=== PATIENT | male | born 1985 | race Caucasian/White ===

== ENCOUNTER → 2022-09-20 05:58 | Day surgery (SDC) | payer OTHER, SELFPAY ==
[2022-09-14 12:28] VITALS: BMI 29.7
[2022-09-14 13:30] VITALS: BMI 29.0
--- NOTE | 2022-09-18 13:25 | P.CONAN_ITS ---
HPI - Anesthesia Eval Consult details Narrative: 37yo M for Left Hernia Repair Inguinal with mesh, Hernia Repair Umbilical possible mesh PMFSH Active Problems Active Problems: All Active Problems (Updated 09/14/22 @ 12:29 by Trinity Sanchez, HANY) Deep inguinal pain, left (Acute) Testicular pain, left (Acute) Left inguinal hernia (Acute) Umbilical hernia (Acute) Past Medical History Medical History (Updated 09/14/22 @ 12:29 by Trinity Sanchez RN) Asthma Family History Family History Mother Asthma Social History Social History (Updated 09/14/22 @ 13:34 by Trinity Sanchez, HANY) Household Members: Significant Other and Children Housing: House Are you a primary primary care sales representative to a significant other at home: No Do you presently have visiting nurse or other home services: No Alcohol intake: current Alcohol intake frequency: does not drink Patient Tobacco Use Status: Current everyday Tobacco user Tobacco use type: Cigarette Cigarettes Per Day: 5 Use of substances other than those prescribed or required for medical reasons: No Substance Use Type: Marijuana Have you been hit, kicked, punched, or otherwise hurt by someone within the past year? If so, by whom?: No Are you DNR?: No Advance Directives: No Advance Directives Information Provided: Yes Advance Directives on File: No Recently lost weight without trying: No Nutrition Risks: No Nutritional Risk Poor oral hygiene: No ( nothing loose or cracked, one fake front upper tooth ) Current occupational status: employed Meds Allergies Allergy/AdvReac Type Severity Reaction Status Date / Time No Known Allergies Allergy Verified 09/14/22 13:28 [No Known Allergies*] Home Medications Medication Instructions Recorded Confirmed Last Taken Type nicotine (polacrilex) 4 mg gum 0 mg PO 08/07/22 08/29/22 Unknown History albuterol sulfate 90 mcg/actuation 2 puff inhalation Q4-6H PRN 09/14/22 09/14/22 Unknown History aerosol inhaler Allergy Symptoms Exam Exam Date and Time: September 18, 2022 1325 Height,Weight and Vital Signs: Height 5 ft 7 in Weight 83.915 kg Assessment and Plan Assessment Anesthesia Assessment: Chart Reviewed
[2022-09-20 06:12] VITALS: BP 115/76; PULSE 74; RESP 15; TEMP 36.5; O2SAT 97
[2022-09-20] MEDS: Lactated Ringers 1,000 ML 100 ML IVCONT (06:34)
--- NOTE | 2022-09-20 06:49 | MHC.SHP ---
Pre-Procedural Eval Section A Date of Service: 09/20/22 The patient is an INPATIENT: No Changes since office visit: Yes Cold of Flu in the past 2 weeks, Yes New Medical Problems, Yes Changes in Medication and Yes Patient answered all questions Section B Chief Complaint: Unilateral inguinal hernia, Umbilical hernia Details of Present Illness: pt shaving his pubic area and has numerous pustules due to shaving. Procedure rescheduled after recheck in the office. Allergies: Allergies Allergy/AdvReac Type Severity Reaction Status Date / Time No Known Allergies Allergy Verified 09/20/22 06:07 [No Known Allergies*] Plan I have reviewed the history and physical and performed a pertinent physical examination on my patient. No changes have occurred unless specified.
--- NOTE | 2022-09-20 07:03 | PC.NURSE ---
surgery cancelled due to bumps on area pt had previously shaved. states shaved last over 72 hours ago and was shaved at his office appointment already.
== END | disposition home or self-care (01) ==
PROVIDERS: PCP Nurse Practitioner Primary Care; Visit Provider Surgery
DX: K40.90 Unilateral inguinal hernia, without obstruction or gangrene, not specified as recurrent (principal); K42.9 Umbilical hernia without obstruction or gangrene; Z53.8 Procedure and treatment not carried out for other reasons
CPT/HCPCS: J0690

== ENCOUNTER 2022-10-25 08:03 | Day surgery (SDC) | payer OTHER, SELFPAY ==
[2022-10-19 12:40] VITALS: BMI 29.2
--- NOTE | 2022-10-24 09:21 | HO.ANESPROP2 ---
Documented by User: Lashawn Sawyer NP 10/24/22 09:21 HPI - Anesthesia Eval Consult details Narrative: 37yo M for Left Hernia Repair Inguinal with mesh, Hernia Repair Umbilical possible mesh Previously cx'd d/t rash on abdomen PMFSH Active Problems Active Problems: All Active Problems (Updated 09/14/22 @ 12:29 by Trinity Sanchez, HANY) Deep inguinal pain, left (Acute) Testicular pain, left (Acute) Left inguinal hernia (Acute) Umbilical hernia (Acute) Past Medical History Medical History Asthma Family History Family History Mother Asthma Surgical History Surgical History No pertinent past surgical history Social History Social History Household Members: Significant Other and Children Housing: House Are you a primary careers counsellor to a significant other at home: No Do you presently have visiting nurse or other home services: No Alcohol intake: current Alcohol intake frequency: does not drink Patient Tobacco Use Status: Current everyday Tobacco user Tobacco use type: Cigarette Cigarettes Per Day: 5 Substance Use Type: Marijuana Are you DNR?: No Advance Directives: No Advance Directives Information Provided: Yes (mailed w/ pre-op instructions) Advance Directives on File: No Recently lost weight without trying: No Eating poorly because of decreased appetite: No Nutrition Risks: No Nutritional Risk Current occupational status: employed Meds Allergies Allergy/AdvReac Type Severity Reaction Status Date / Time No Known Allergies Allergy Verified 10/19/22 12:46 [No Known Allergies*] Home Medications Medication Instructions Recorded Confirmed Last Taken Type albuterol sulfate 90 mcg/actuation 2 puff inhalation Q4-6H PRN 09/14/22 10/19/22 Unknown History aerosol inhaler Allergy Symptoms Exam Exam Date and Time: October 24, 2022920 Height,Weight and Vital Signs: Height 5 ft 7 in Weight 84.822 kg Assessment and Plan Assessment Anesthesia Assessment: Chart Reviewed Documented by User: Rakesh Villalobos MD 10/25/22 09:23 [facility] Past Medical History Medical History Asthma Family History Family History Mother Asthma Family history of problems with anesthesia: No Surgical History Surgical History No pertinent past surgical history History of Problems with Anesthesia: No Social History Social History Household Members: Significant Other and Children Housing: House Are you a primary careers counsellor to a significant other at home: No Do you presently have visiting nurse or other home services: No Alcohol intake: current Alcohol intake frequency: does not drink Patient Tobacco Use Status: Current everyday Tobacco user Tobacco use type: Cigarette Cigarettes Per Day: 5 Substance Use Type: Marijuana Are you DNR?: No Advance Directives: No Advance Directives Information Provided: Yes (mailed w/ pre-op instructions) Advance Directives on File: No Recently lost weight without trying: No Eating poorly because of decreased appetite: No Nutrition Risks: No Nutritional Risk Current occupational status: employed Meds Allergies Allergy/AdvReac Type Severity Reaction Status Date / Time No Known Allergies Allergy Verified 10/19/22 12:46 [No Known Allergies*] Home Medications Medication Instructions Recorded Confirmed Last Taken Type albuterol sulfate 90 mcg/actuation 2 puff inhalation Q4-6H PRN 09/14/22 10/19/22 Unknown History aerosol inhaler Allergy Symptoms Exam Airway Mallampati Class: II TM Dist: >3cm Neck ROM: Full Heart: rrr Lungs: clear Assessment and Plan Final Anesthetic Review Family History of Problems with Anesthesia: No History of Problems with Anesthesia: No NPO: Yes ASA Class: II Final Preanesthetic Review: No Changes in Pt Med Stat, Meds/Allgs Chart Reviewed, Consent Obtained/Reviewed and Anes Risks/Benef Reviewed Patient Risk: Low Procedure Risk: Low Anesthetic Plan Anesthetic Plan: GA Disposition: Standard PACU
[2022-10-25] VITALS (8 sets, daily range): BP systolic 108–128; BP diastolic 60–88; PULSE 60–78; RESP 16–20; TEMP 36.1–36.7; O2SAT 93–100; BMI 29.1
[2022-10-25] MEDS: Lactated Ringers 1,000 ML 100 ML IVCONT (08:39)
--- NOTE | 2022-10-25 09:07 | P.OP_ITS ---
Operative Note Operative Note Date of Service: 10/25/22 Narrative: Preop diagnosis: [LEFT inguinal hernia by CT, umbilical hernia] Postop diagnosis: [Direct LEFT inguinal hernia containing viable properitoneal fat; 6 mm umbilical hernia containing viable properitoneal fat] Procedure: [Open left inguinal hernia repair with mesh; open umbilical hernia repair] Surgeon: Alfonso Hanley MD Assist: [] Anesthesia: [general via LMA, local ropivicaine 0.5%] Estimated blood loss: [3cc] Specimen: [none] Intraoperative findings: [Left Direct inguinal hernia with viable properitoneal fat; viable properitoneal fat in the umbilical hernia with a 6 mm diameter umbilical hernia closed primarily] Indications: [The patient is a 37-year-old gentleman who presented to the office with deep left groin pain, back pain and an umbilical hernia. An inguinal hernia was not apparent on physical exam and when the pain worsened, he went to an emergency department where a CT was performed that demonstrated the small left inguinal hernia with no bowel contained. Given this, the option of hernia repair with mesh was discussed with the patient. The option of continued observation and option of repair of his umbilical hernia was all reviewed. The patient seemed understand his options, declined an diplomatic interpreter and wanted to proceed. We reviewed the inherent risks to an open left inguinal hernia repair with mesh which include, but are not limited to bleeding, infection, hernia recurrence, mesh complications, continued pain and continued back issues since it is likely the 2 are unrelated. The patient seemed understand his options and wanted to proceed.] Procedure: [The patient was identified by myself in the preoperative holding area and marked by myself, he was then identified again in the operating room, placed supine, induced in general via LMA administered with excellent effect. His abdominal and groin here at previously been clipped in preop holding. He was widely prepped and draped in the usual manner for surgery using ChloraPrep. An appropriate time-out was performed confirming the operative site and procedure. The patient was then widely prepped and draped in the usual manner using chlorhexidine. A LEFT ileoinguinal nerve block was performed using ropivacaine, 0.5% and a standard left inguinal herniorrhaphy incision made sharply through the skin. Dissection was carried through all layers using electric cautery for dissection and hemostasis. Additional local was infiltrated is the external oblique aponeurosis, in the external oblique aponeurosis opened sharply in the direction of its fibers to the external ring. The ilioinguinal nerve was identified and preserved/sacrificed through the dissection. The cord was mobilized at the level of the pubic tubercle and surrounded with hernia tape. The floor was inspected and a small direct inguinal hernia found. Careful dissection of the spermatic cord to preserve the vessels and vas was performed to assess for indirect hernia sac but there was no evidence of an indirect hernia. Next, the floor was imbricated using a 2-0 Polysorb and a standard Jerardo tension- free herniorrhaphy performed using polypropylene patch that was sutured to the pubic tubercle and inguinal ligament using a 2-0 Polysorb. A new internal ring was made using 2-0 polypropylene suture. The new internal ring was snug enough that it could just accommodate a tip of a hemostat. Next, the operative field was inspected for hemostasis which was good, the external oblique aponeurosis was closed with a running 0 Polysorb suture, subcutaneous tissues closed with 3- 0 Polysorb and skin closed with running 4-0 Monocryl subcuticular suture. The abdomen was washed and dried, Mastisol and Steri-Strips applied followed by a sterile dressing. Patient tolerated the procedure well was sent to the recovery area in stable c ondition. All sponge and instrument counts were correct x2. At the patient's request, I contact his wifeDebra at [phone] apprised her by telephone of the procedure. Instructions regarding activity and pain management were reviewed. Questions were answered.]
--- NOTE | 2022-10-25 09:07 | MHC.SHP ---
Pre-Procedural Eval Section A Date of Service: 10/25/22 The patient is an INPATIENT: No The History & Physical has been completed within 30 days and I have reviewed it.: Yes Section B Chief Complaint: umbilical and inguinal hernia Allergies: Allergies Allergy/AdvReac Type Severity Reaction Status Date / Time No Known Allergies Allergy Verified 10/19/22 12:46 [No Known Allergies*] Plan I have reviewed the history and physical and performed a pertinent physical examination on my patient. No changes have occurred unless specified. Time Spent With Patient Time: Total time managing care of this patient today ____ minutes.
[2022-10-25] MEDS: oxyCODONE HCl Immed Release 5 MG TABLET PO (11:49)
== END 2022-10-25 12:47 | disposition home or self-care (01) ==
LOC: HO.SSS 08:04
PROVIDERS: PCP Nurse Practitioner Primary Care; Visit Provider Surgery
PROC: (CPT 49505; principal; 2022-10-25 09:10)
PROC: (CPT 49505; 2022-10-25 09:10)
DX: K40.90 Unilateral inguinal hernia, without obstruction or gangrene, not specified as recurrent (principal); K42.9 Umbilical hernia without obstruction or gangrene; J45.909 Unspecified asthma, uncomplicated; Z79.899 Other long term (current) drug therapy; F17.210 Nicotine dependence, cigarettes, uncomplicated; F12.90 Cannabis use, unspecified, uncomplicated
CPT/HCPCS: 49505; 49585; C1781; J0690; J1100; J1885; J2250; J2405; J2795; J3010

== ENCOUNTER → 2022-11-01 15:00 | Outpatient (BNVA) | payer OTHER, SELFPAY | PROVIDERS: PCP Nurse Practitioner Primary Care; Visit Provider Surgery | DX: K42.9 Umbilical hernia without obstruction or gangrene (principal) ==

== ENCOUNTER 2023-11-12 | Outpatient (REF) | payer OTHER, SELFPAY | END 2023-11-12 00:01 | disposition home or self-care (01) | LOC: HO.HHCLNP | PROVIDERS: Visit Provider Internal Medicine | DX: J02.9 Acute pharyngitis, unspecified (principal) | CPT/HCPCS: 87070; 87147 ==

== ENCOUNTER 2024-02-13 08:48 | Outpatient (REF) | payer OTHER, SELFPAY ==
[2024-02-13 11:51] LABS: Lipase 222 U/L (8-78)
[2024-02-13 11:58] LABS: Alanine Aminotransferase 32 U/L (0-40); Albumin Level 4.4 g/dL (3.5-5.0); Alkaline Phosphatase 49 U/L (39-117); Anion Gap 11 (12-20); Aspartate Amino Transferase 27 U/L (5-37); Bilirubin Direct 0.2 mg/dL (0.0-0.5); Bilirubin Total 0.6 mg/dL (0.0-1.0); Blood Urea Nitrogen 14 mg/dL (9-16); Calcium 9.5 mg/dL (8.4-10.2); Carbon Dioxide 24 mmol/L (22-29); Chloride 108 mmol/L (96-108); Cholesterol 192 mg/dL (<200); Estimated Glomerular Filt Rate > 60; Glucose Random 102 mg/dL (60-115); HDL Cholesterol 40 mg/dL (>40); LDL Cholesterol Calculated 129 mg/dL (<100); Potassium 4.4 mmol/L (3.3-5.1); Sodium 139 mmol/L (135-145); Total Protein 7.2 g/dL (6.5-8.0); Triglycerides 119 mg/dL (<150)
== END 2024-02-13 08:49 | disposition home or self-care (01) ==
LOC: HO.HHCL 08:48
PROVIDERS: Internal Medicine Geriatric Medicine; Visit Provider Nurse Practitioner Primary Care
DX: Z00.00 Encounter for general adult medical examination without abnormal findings (principal); Z13.220 Encounter for screening for lipoid disorders; R79.89 Other specified abnormal findings of blood chemistry; Z87.19 Personal history of other diseases of the digestive system
CPT/HCPCS: 36415; 80048; 80061; 80076; 83690

== ENCOUNTER 2024-02-29 08:02 | Outpatient (REF) | payer OTHER, SELFPAY ==
[2024-02-29 10:56] LABS: Lipase 26 U/L (8-78)
== END 2024-02-29 08:03 | disposition home or self-care (01) ==
LOC: HO.LAB 08:02
PROVIDERS: PCP Nurse Practitioner Primary Care; Visit Provider Nurse Practitioner Primary Care
DX: Z87.19 Personal history of other diseases of the digestive system (principal)
CPT/HCPCS: 36415; 83690

== ENCOUNTER 2024-05-22 16:22 | Outpatient (REF) | payer OTHER, SELFPAY ==
[2024-05-23 17:59] LABS: C. trachomatis RNA TMA NOT DETECTED (NOT DETECTED); N. gonorrhoeae RNA TMA NOT DETECTED (NOT DETECTED)
== END 2024-05-22 16:23 | disposition home or self-care (01) ==
LOC: HO.HHCLNP 16:22
PROVIDERS: Visit Provider Nurse Practitioner Primary Care
DX: Z20.2 Contact with and (suspected) exposure to infections with a predominantly sexual mode of transmission (principal)
CPT/HCPCS: 36415; 87491; 87591

== ENCOUNTER 2025-04-12 11:29 | Day surgery (SDC) | payer OTHER, SELFPAY ==
--- OUTSIDE RECORDS SUMMARY | 2025-04-07 11:07 | XMS_ITS ---
Author Organization [facility] Address [address] [place] [phone] Care Team Providers Care Child Care Aide Name Role Phone LEIGHTON CORCORAN N.P. Primary Care Provider Salvatore Gonzalez [phone] REASON FOR VISIT colonoscopy Encounters Encounter Location Date Provider Diagnosis [facility] [address] [place] [phone] 09/10/2024 Salvatore Sheppard Plan Of Treatment Next Appt Details Provider Name:Salvatore Sheppard , 04/12/2025 12:40:00 PM, [address] [place] [address], [phone], Progress Notes * ARIANNA LOGANOB:1985 (39 yo M)Acc No.[id number]:09/10/2024 Patient:?EMELY LOGAN :1985???Age:39 Y???Sex:Male Address:[address] [place] [address], [phone] * true * Date:? Generated for Printi sam/Mark/eTransmitting on:?04/07/2025 11:07 AM EDT
[2025-04-08 14:59] VITALS: BMI 28.8
[2025-04-12 11:47] VITALS: BMI 28.0
[2025-04-12 11:55] VITALS: BP 113/80; PULSE 82; RESP 16; TEMP 36.6; O2SAT 96
[2025-04-12] MEDS: Lactated Ringers 1,000 ML 100 ML IVCONT (12:02)
--- NOTE | 2025-04-12 12:07 | HO.ANESPROP2 ---
Documented by User: Lashawn Sawyer NP 04/09/25 09:14 HPI - Anesthesia Eval Consult details Narrative: 40yo M for Colonoscopy PMFSH Active Problems Active Problems: All Active Problems Umbilical hernia (Acute) Left inguinal hernia (Acute) Testicular pain, left (Acute) Deep inguinal pain, left (Acute) Past Medical History Medical History (Updated 04/08/25 @ 15:03 by Trinity Sanchez RN) Fatty liver Hx of pancreatitis Asthma Family History Family History Mother Asthma Family history of problems with anesthesia: No Surgical History Surgical History (Updated 04/08/25 @ 15:01 by Trinity Sanchez RN) Hx of umbilical hernia repair Hx of left inguinal hernia repair History of Problems with Anesthesia: No Social History Social History Household Members: Significant Other and Children Housing: House Are you a primary skin care instructor to a significant other at home: No Do you presently have visiting nurse or other home services: No Alcohol intake: current Alcohol intake frequency: does not drink Patient Tobacco Use Status: Current everyday Tobacco user Tobacco use type: Smokeless Tobacco Cigarettes Per Day: 5 e-Cigarette/Vaping Use: Currently Using Frequency of e-Cigarette/Vaping Use: 2x/day Use of substances other than those prescribed or required for medical reasons: Yes Substance Use Type: Marijuana Substance Use Type Other:: gummies Are you DNR?: No Advance Directives: No Advance Directives Information Provided: Yes Current occupational status: employed Meds Allergies Allergy/AdvReac Type Severity Reaction Status Date / Time No Known Allergies Allergy Verified 04/12/25 11:47 [No Known Allergies*] Home Medications ?Medication ?Instructions ?Recorded ?Confirmed ?Last Taken ?Type albuterol sulfate 90 mcg/actuation 2 puff inhalation Q4-6H PRN 09/14/22 04/12/25 Unknown History aerosol inhaler Allergy Symptoms Exam Height,Weight and Vital Signs: Height 5 ft 7 in Weight 83.461 kg Assessment and Plan Assessment Anesthesia Assessment: Chart Reviewed Final Anesthetic Review Family History of Problems with Anesthesia: No History of Problems with Anesthesia: No Documented by User: Sharmin Watson DO 04/12/25 12:08 [facility] Past Medical History Medical History (Updated 04/08/25 @ 15:03 by Trinity Sanchez RN) Fatty liver Hx of pancreatitis Asthma Family History Family History Mother Asthma Family history of problems with anesthesia: No Surgical History Surgical History (Updated 04/08/25 @ 15:01 by Trinity Sanchez RN) Hx of umbilical hernia repair Hx of left inguinal hernia repair History of Problems with Anesthesia: No Social History Social History Household Members: Significant Other and Children Housing: House Are you a primary skin care instructor to a significant other at home: No Do you presently have visiting nurse or other home services: No Alcohol intake: current Alcohol intake frequency: does not drink Patient Tobacco Use Status: Current everyday Tobacco user Tobacco use type: Smokeless Tobacco Cigarettes Per Day: 5 e-Cigarette/Vaping Use: Currently Using Frequency of e-Cigarette/Vaping Use: 2x/day Use of substances other than those prescribed or required for medical reasons: Yes Substance Use Type: Marijuana Substance Use Type Other:: gummies Are you DNR?: No Advance Directives: No Advance Directives Information Provided: Yes Current occupational status: employed Meds Allergies Allergy/AdvReac Type Severity Reaction Status Date / Time No Known Allergies Allergy Verified 04/12/25 11:47 [No Known Allergies*] Home Medications ?Medication ?Instructions ?Recorded ?Confirmed ?Last Taken ?Type albuterol sulfate 90 mcg/actuation 2 puff inhalation Q4-6H PRN 09/14/22 04/12/25 Unknown History aerosol inhaler Allergy Symptoms Exam Exam Date and Time: 04/12/25 1205 Height,Weight and Vital Signs: Height 5 ft 7 in Weight 83.461 kg Vital Signs Temperature 97.8 F 04/12/25 11:55 Pulse Rate 82 04/12/25 11:55 Respiratory Rate 16 04/12/25 11:55 Blood Pressure 113/80 04/12/25 11:55 Pulse Oximetry 96 04/12/25 11:55 Oxygen Delivery Method Room Air 04/12/25 11:55 Temperature 97.8 F 04/12/25 11:55 Pulse Rate 82 04/12/25 11:55 Respiratory Rate 16 04/12/25 11:55 Blood Pressure 113/80 04/12/25 11:55 Pulse Oximetry 96 04/12/25 11:55 Oxygen Delivery Method Room Air 04/12/25 11:55 Airway Mallampati Class: II TM Dist: >3cm Neck ROM: Full Loose/Missing/Broken Teeth: No (false tooth - right front but no loose or broken teeth) Heart: S1S2 Lungs: CTAB Assessment and Plan Assessment Anesthesia Assessment: Anesthesia Plan Discussed and Chart Reviewed Final Anesthetic Review Family History of Problems with Anesthesia: No History of Problems with Anesthesia: No NPO: Yes ASA Class: II Final Preanesthetic Review: No Changes in Pt Med Stat, Meds/Allgs Chart Reviewed, Consent Obtained/Reviewed and Anes Risks/Benef Reviewed Patient Risk: Low Procedure Risk: Low Anesthetic Plan Anesthetic Plan: MAC: and Agree w/ Assess. and Plan Disposition: Standard PACU
[2025-04-12 13:36] VITALS: BP 100/64; PULSE 70; RESP 20; TEMP 36.3; O2SAT 94
--- NOTE | 2025-04-12 13:36 | PM.OP ---
Brief Operative Note Date of Service: 04/12/25 Pre-op diagnosis: Screening Post-op diagnosis: other (Rectal polyps) Procedure: Colonoscopy to the cecum and TI with hot snare polypectomy x 2. Surgeon: Salvatore Sheppard MD Anesthesia: MAC Was an Veterinary Toxicologist used for this Procedure?: No Estimated blood loss (mL): 0 Pathology: other (A. Larger distal rectal polyp B. Rectal polyp) Condition: stable Disposition: PACU
[2025-04-12 14:00] VITALS: BP 111/79; PULSE 68; RESP 16; O2SAT 99
[2025-04-12 14:12] VITALS: BP 112/79; PULSE 63; RESP 16; TEMP 36.4; O2SAT 100
--- NOTE | 2025-04-13 12:12 | OP_ITS ---
DATE OF SERVICE: 04/12/2025 SURGEON: Salvatore Sheppard MD INDICATIONS: The patient presents for evaluation of colorectal cancer screening and family history of colon cancer. Full consent obtained from him for this, including risks of bleeding and perforation. PREOPERATIVE DIAGNOSIS: POSTOPERATIVE DIAGNOSIS: PROCEDURE PERFORMED: Colonoscopy to the cecum and terminal ileum with hot snare polypectomy x 2. ESTIMATED BLOOD LOSS: COMPLICATIONS: ANESTHESIA: Medication used, monitored anesthesia care. ASSISTANTS: SPECIMENS: PREOPERATIVE DIAGNOSES: Colorectal cancer screening and family history of colon cancer. POSTOPERATIVE DIAGNOSES: Colorectal cancer screening, family history of colon cancer, colon polyps, internal hemorrhoids. DESCRIPTION OF PROCEDURE: The patient was placed in the left lateral decubitus position. The digital rectal exam revealed no abnormalities. The Olympus video pediatric colonoscope was entered into the rectum and advanced easily to the cecum. Once in the cecum, I did identify normal-appearing cecal pouch with appendiceal orifice and normal-appearing ileocecal valve. The terminal ileum was cannulated and appeared normal. Scope was withdrawn back in the colon. The entire cecum and ileocecal valve appeared normal. The scope was slowly withdrawn, assessing all mucosal surfaces carefully. Preparation was excellent. I did not visualize any sign of colitis nor angiodysplasia. In the lower third of the rectum, was an approximately 6 to 8 mm grossly adenomatous polyp, which was removed by hot snare polypectomy and recovered by suction. The polypectomy site appeared clean, without any sign of residual polyp. In the distal portion of the rectum, seen best in the retroflexed position, was an approximately 1.5 cm polyp removed by hot snare polypectomy and recovered by withdrawing it on the tip of the scope out of the patient. The scope was advanced back into the rectum. Both polypectomy sites appeared clean, without any sign of residual polyp nor bleeding. The remainder of the rectum appeared normal both in the forward viewing and retroflexed positions. The scope was withdrawn from the patient. He tolerated the procedure well and was returned to recovery area in stable condition. IMPRESSION: 1. Rectal polyps. 2. Minimal internal hemorrhoids. PLAN: The results of the pathology will be checked. Given their appearance and his family history, I would recommend a followup colonoscopy within 3 years for further screening and surveillance. He was advised not to use any aspirin and NSAIDs for at least 1 week. MD MADISON Trimble/VENESSA / [id number] MTDD
== END 2025-04-12 14:35 | disposition home or self-care (01) ==
PROVIDERS: PCP Nurse Practitioner Primary Care; Visit Provider Internal Medicine
PROC: 0DJD8ZZ Inspection of Lower Intestinal Tract, Via Natural or Artificial Opening Endoscopic (ICD-10-PCS; CPT 45378; principal; 2025-04-12 12:40)
DX: Z12.11 Encounter for screening for malignant neoplasm of colon (principal); Z80.0 Family history of malignant neoplasm of digestive organs; D12.8 Benign neoplasm of rectum; K64.8 Other hemorrhoids; K70.0 Alcoholic fatty liver; K85.20 Alcohol induced acute pancreatitis without necrosis or infection; F10.11 Alcohol abuse, in remission; J45.909 Unspecified asthma, uncomplicated; Z79.899 Other long term (current) drug therapy; Z98.890 Other specified postprocedural states; Z87.891 Personal history of nicotine dependence
CPT/HCPCS: 45385; 88305; J2003; J2704

== ENCOUNTER 2025-11-01 14:57 | Outpatient (REF) | payer OTHER, SELFPAY ==
--- OUTSIDE RECORDS SUMMARY | 2024-09-14 05:40 | XMS_ITS ---
Author Organization [facility] Address [address] [place] [phone] Care Team Providers Care Hand Counter Name Role Phone LEIGHTON CORCORAN N.P. Primary Care Provider Salvatore Gonzalez [phone] REASON FOR VISIT screening,fam hx colon ca Encounters Encounter Location Date Provider Diagnosis [facility] [place] [facility] [place] [address] [place] [phone] 09/14/2024 Salvatore Sheppard Plan Of Treatment No Information Progress Notes * ARIANNA LOGANOB:1985 (40 yo M)Acc No.[id number]:09/14/2024 COLON WITH MAC Patient: EMELY RAWLS Provider: Ed Sheppard MD :1985 A ge:39 Y S ex:Male Date:09/14/2024 Address:[address] [place], [place] [phone] Pcp:LEIGHTON CORCORAN N.P. Subjective: * Chief Complaints: * S creening,fam hx colon ca * The named appointment provid er may or may not be the originator of this progress note, and it is not deemed complete until electronically signed by the appointment provider. Sign off status: Pending * Provider: Ed Sheppard MD Date: 11/14/2023 Generated for Yosef vargas/Mark/eThusamsmitting on: 01/02/2025 06:11 PM EST
--- OUTSIDE RECORDS SUMMARY | 2025-01-04 05:10 | XMS_ITS ---
Author Organization [facility] Address [address] [place] [phone] Care Team Providers Care Nurse Advocate Name Role Phone ELIGHTON CORCORAN N.P. Primary Care Provider Salvatore Gonzalez [phone] REASON FOR VISIT screening,fam hx colon ca Encounters Encounter Location Date Provider Diagnosis [facility] [place] [address] [place] [phone] 01/04/2025 Salvatore Sheppard Plan Of Treatment No Information Progress Notes * ARIANNA LOGANOB:1985 (40 yo M)Acc No.[id number]:01/04/2025 COLON WITH MAC Patient: EMELY RAWLS Provider: Ed Sheppard MD :1985 A ge:39 Y S ex:Male Date:01/04/2025 Address:[address] [place], [place] [phone] Pcp:LEIGHTON CORCORAN N.P. Subjective: * Chief Complaints: * S creening,fam hx colon ca * The named appointment provid er may or may not be the originator of this progress note, and it is not deemed complete until electronically signed by the appointment provider. Sign off status: Pending * Provider: Ed Sheppard MD Date: 0 01/04/2025 Generated for Yosef vargas/Mark/eThusamsmitting on: 1 01/02/2025 06:11 PM EST
--- OUTSIDE RECORDS SUMMARY | 2025-04-12 07:40 | XMS_ITS ---
Author Organization [facility] Address [address] [place] [phone] Care Team Providers Care Roller Cleaner Name Role Phone LEIGHTON CORCORAN N.P. Primary Care Provider Salvatore Gonzalez [phone] REASON FOR VISIT screening,fam hx colon ca Encounters Encounter Location Date Provider Diagnosis [facility] [place] [address], [place] [phone] 04/12/2025 Salvatore Sheppard Colon cancer scree barbara [...] Notes * ARIANNA LOGANOB:1985 (40 yo M)Acc No.[id number]:04/12/2025 COLON WITH MAC Patient: Ed CARLA EMELY Provider: Ed Sheppard MD :1985 A ge:40 Y S ex:Male Date:04/12/2025 Address:[address] [place], [place] [phone] Pcp:LEIGHTON CORCORAN N.P. Subjective: * Chief Complaints: [...] Modifiers: PT Billing Information: * Procedure Codes: 27929 LESION REMOVAL COLONOSCOPY. Modifiers: PT * The named appointment provid er may or may not be the originator of this progress note, and it is not deemed complete until electronically signed by the appointment provider. Sign off status: Pending * Provider: Ed Sheppard MD Date: 0 04/12/2025 Generated for Yosef vargas/Mark/Lizethitting on: 01/02/2025 06:10 PM EST
--- NOTE | ~2025-11-01 | US_ITS ---
EXAMINATION: US SCROTUM HISTORY: h/o L inguinal hernia 10/2022, pain radiating into L testicle. COMPARISON: There are no prior studies available for comparison. FINDINGS: Real-time grayscale ultrasound imaging of the scrotum was performed. RIGHT TESTICLE: The right testis measures 5.0 x 2.3 x 2.5 cm and demonstrates normal homogeneous echotexture. No masses are seen. The right testis demonstrates normal color Doppler flow. RIGHT EPIDIDYMIS: Normal in size, shape, and vascularity. LEFT TESTICLE: The left testis measures 4.7 x 1.9 x 3.2 cm and demonstrates normal homogeneous echotexture. There is a cyst of the tunica measuring 4 mm in size. No testicular masses are seen. The left testis demonstrates normal color Doppler flow. LEFT EPIDIDYMIS: Normal in size, shape, and vascularity. There are 2 cysts in the epididymal head measuring 4 x 5 x 5 mm and 3 x 2 x 3 mm. VARICOCELE: None. HYDROCELE: No significant hydrocele is seen. OTHER COMMENTS: None. US/US scrotum IMPRESSION: Left epididymal head cysts as described. Otherwise unremarkable scrotal ultrasound. If there is clinical concern for a recurrent left inguinal hernia, CT is recommended. Electronically signed by: Salvatore Kwon MD 11/02/2025 07:12 AM [facility]
--- OUTSIDE RECORDS SUMMARY | 2025-11-01 18:11 | XMS_ITS | Encounter Summary ---
Author Organization [email or web address] Address [address] [place] [address] [address] [place] [address] Care Team Providers Care Debeaker Name Role Phone Oliva Nur Primary Care Provider [phone] Reason for Referral * Imaging (Routine) - Closed Specialty Diagnoses / Procedures Referred By Contavi t Referred To Contact Radiology Diagnoses Lower abdominal pain Procedures US Abdomen Limited(Soft Tissue) Oliva Nur ANP [address] [place] [address] Phone: tel: fax: Diagnostic Imaging, [facility] [address] [place] [address] Phone: tel: fax: Referral ID Status Reason Start Date Expiration Date Visits Re quested Visits Authorized [id number] Closed 10/29/2023 10/28/2024 1 1 Reason for Visit * Reason Onset Date Comments Order(s) 10/25/2023 Encounter Details Date Type Department Care Team ([facility] st Contact Info) Description 10/25/2023 Telephone [facility] [address] [place], [place] [phone] Oliva Nur ANP [address] [place], [place] [phone] Order(s) Social History Tobacco Use Types Packs/Day Years Used Date Smoking Tobacco: Former Cigarettes Passive Smoke Exposure: Current Smokeless Tobacco: Current Comments:contemplative Alcohol Use Standard Drinks/Week Comments Yes 0 (1 standard drink = 0.6 oz pur e alcohol) Housing Stability Answer Date Recorded What is your housing situation today? I have jerome forbes 09/04/[address] you li ve. Do you have problems with any of the following? None of the above 09/04/2023 Food Insecurity Answer Date Recorded Within the past 12 months, y ou worried that your food would run out before you got money to buy more: Never True 09/04/2023 Within the past 12 months,th e food you bought just didn't last and you didn't have enough money to get more: Never True Transportation Answer Date Recorded In the past 12 months, has l ack of transportation kept you from medical appts, meetings, work or from getting things needed for daily living? No 09/04/2023 Utilities Answer Date Recorded In the past 12 months, has t he electric, gas, oil or water company threatened to shut off services in your home? No 09/04/2023 Sex and Gender Information Value Date Recorded Sex Assigned at Male 09/10/2022 10:31 AM EDT Legal Sex Male 10:31 AM EDT Gender Identity Male 09/10/2022 10:31 AM EDT Sexual Orientation Choose not to disclose 2021 10:31 AM EDT documented as of this encounter Miscellaneous Notes * Telephone Encounter - Helen Upton RN - 10/25/2023 3:17 PM EST [facility] confirming need new order for abd ultrasound stating Ultra sound on soft tissue abdomen wall it has to be this way due to of the hernia. * Telephone Encounter - Agusto Zaidi - 10/25/2023 1:09 PM EST Tc from [facility] calling from [facility] requesting orders for Ultra sound on soft tissue abdomen wall. If any questions please contact [facility] at [phone]. documented in this encounter Plan of Treatment Upcoming Encounters Date Type Department Care Team (Late st Contact Info) Description 11/15/2025 3:00 PM EST Office Visit [facility] ADULT DENTAL [address] [facility] [place], [place] [phone] 12/16/2025 2:30 PM EST Office Visit [facility] ADULT D[facility]AL [address] [place] [address] Mario Bowman DDS [address] [place] [address] 03/14/2026 2:15 PM EDT Office Visit [facility] ADULT DENTAL [address] [place] [address] Johanne Noriega Scheduled Orders Name Type Priority Associated Diagnoses Orde r Schedule US Abdomen Limited(Soft Tissue) Imaging Routine Lower abdominal pain Expected: 10/29/2023, Expires: 10/29/2024 documented as of this encounter Visit Diagnoses Diagnosis Lower abdominal pain- Primary Abdominal pain, other specified site documented in this encounter Care Teams Debeaker Relationship Specialty Start Date End Date Oliva Nur ANP [address] [place] [address] PCP - General Family Medicine 01/28/20 documented as of this encounter
--- OUTSIDE RECORDS SUMMARY | 2025-11-01 18:11 | XMS_ITS | Encounter Summary ---
Author Organization [employer] Address [address] [facility] [address] [place] [address] Care Team Providers Care Napper Grinder Name Role Phone Liudmila Oliva CORADO Primary Care Provider [phone] Reason for Visit * Reason Comments Med Refill Encounter Details Date Type Department Care Team ([facility] st Contact Info) Description 01/13/[address] [facility] ADULT DENTAL [address] [place], [place] [phone] Mario Bowman, SAM [address] [place] [address] Severe dental caries; Dental abscess; Non-restorable tooth Social History Tobacco Use Types Packs/Day Years [...] off services in your home? No 09/04/2023 Internet Access Answer Date Recorded Internet Access Q1 Yes 07/13/2024 Internet Access Q2 Not on file 07/13/2024 Sex and Gender Information Value Date Recorded Sex Assigned at Male 09/10/2022 10:31 AM EDT Legal Sex Male 10:31 AM EDT Gender Identity Male 09/10/2022 10:31 AM EDT Sexual Orientation Choose not to disclose 2021 10:31 AM EDT documented as of this encounter Plan of Treatment Upcoming Encounters Date Type Department Care Team (Late st Contact Info) Description 11/15/2025 3:00 PM EST Office Visit [facility] ADULT DENTAL [address] [place] [address] 12/16/2025 2:30 PM EST Office Visit [facility] ADULT D[facility]AL [address] [place] [address] Mario Bowman DDS [address] [place] [address] 03/14/2026 2:15 PM EDT Office Visit [facility] ADULT D[facility]AL [address] [place] [address] Johanne Noriega documented as of this encounter Visit Diagnoses Diagnosis Severe dental caries Dental abscess Periapical abscess without sinus Non-restorable tooth documented in this encounter Care Teams Napper Grinder Relationship Specialty Start Date End Date Oliva Nur ANP [address] [place] [id number] PCP - General Family Medicine 01/28/20 documented as of this encounter
--- OUTSIDE RECORDS SUMMARY | 2025-11-01 18:12 | XMS_ITS | Encounter Summary ---
Author Organization [employer] Address [address] [place] [address] Care Team Providers Care Licensed Psychologist Manager Name Role Phone Liudmila Oliva CORADO Primary Care Provider Reason for Visit * Reason Comments Med Refill Encounter Details Date Type Department Care Team ([facility] st Contact Info) Description 01/12/2025 Refill [facility] ADULT DENTAL [address] [place], [place] [phone] Mario Bowman, SAM [address] [place] [address] Severe dental caries; Dental abscess; Non-restorable tooth [...] 3:00 PM EST Office Visit [facility] ADULT DENTAL [address] [place] [address] 12/16/2025 2:30 PM EST Office Visit [facility] ADULT DENTAL [address] [place] [address] Mario Bowman DDS [address] [place] [address] 03/14/2026 2:15 PM EDT Office Visit [facility] ADULT DENT[facility] [address] [place] [address] Johanne Noriega documented as of this encounter Visit Diagnoses Diagnosis Severe dental caries Dental abscess Periapical abscess without sinus Non-restorable tooth documented in this encounter Care Teams Licensed Psychologist Manager Relationship Specialty Start Date End Date Oliva Nur ANP [address] [place] [address] PCP - General Family Medicine 01/28/20 documented as of this encounter
--- OUTSIDE RECORDS SUMMARY | 2025-11-01 18:12 | XMS_ITS | Encounter Summary ---
Author Organization [facility] Address [address] [place] [phone] Care Team Providers Care Head Kiln Operator Name Role Phone Elia Pimentel MD Primary Care Provider [phone] Encounter Details Date Type Department Care Team (Latest Contact Info) Description 03/17/2025 Lab Requisition [facility] - Main Lab [address] [facility] [place] [address] Mario Bowman DDS [address] [place] [phone] Nicotine dependence, unspecified, uncomplicated Social History Tobacco Use Types Packs/Day Years Used Date Smoking Tobacco: Every Day Smokeless Tobacco: Never Alcohol Use Standard Drinks/Week Comments Yes 0 (1 standard drink = 0.6 oz pur e alcohol) Sex and Gender Information Value Date Recorded Sex Assigned at Not on file Legal Sex Male 5:06 AM EST Gender Identity Not on file Sexual Orientation Not on file documented as of this encounter Plan of Treatment Not on file documented as of this encounter Procedures Procedure Name Priority Date/Time Associated Diagnosis Comments TISSUE EXAM Routine 03/16/2025 Nicotine dependence, unspecified, uncomplicated documented in this encounter Results * Tissue Exam (03/16/2025) Final Diagnosis Oral Cavity, left retromolar mandibular ridge-Incisio nal biopsy -SUBMUCOSAL FIBROMA 03/18/2025 9:39 AM EDT [facility] at 0939 EDT Clinical Information Incisional biopsy left retromolar mandibular ridge 40 y.o. male - smoker/now vaping Submucosal fibroma 03/18/2025 9:39 AM EDT [facility] Gross Description A. Oral Cavity, Incisional biopsy left retromolar mandibular ridge: Labeled oral mucosa . Received in formalin is a thin, 0.3 cm in greatest diameter white shave of epithelial tissue which is inked blue at the base and submitted in toto in one cassette, one piece, multiple levels. TS 03/18/2025 9:39 AM EDT [facility] Disclaimer Unless otherwise specified, all tissue is 10% NB formalin fixed and paraffin embedded. 03/18/2025 9:39 AM EDT [facility] Tissue Oral cavity structure / Unknown 03/16/2025 03/17/2025 1:41 PM EDT us Mario Bowman DDS LAB PATHOLOGY ORDERABLES Fin al Result [facility] [address] [place] [address], documented in this encounter Visit Diagnoses Diagnosis Nicotine dependence, unspecified, uncomplicated documented in this encounter Care Teams Head Kiln Operator Relationship Specialty Start Date End Date Elia Pimentel MD [address] [place] [address] PCP - General Internal Medicine 01/11/20 documented as of this encounter
--- OUTSIDE RECORDS SUMMARY | 2025-11-01 18:12 | XMS_ITS | Clinical Summary ---
Author Organization [employer] Address [address] [facility] [address] [place] [address] Care Team Providers Care Stave Jointer Name Role Phone Oliva Nur MICKIE Primary Care Provider Allergies Active Allergy Reactions Criticality Noted Date Comments Bee Venom 11/02/2015 Swelling of the site of the sting Medications Blood Pressure kitIndications: Elevated BP without diagnosis of hypertension To check the BP daily. Keep the log for your next visit. 1 kit 024 Active sucralfate (Carafate) 1 g tabletIndicatio ns:Gastroesopha geal reflux disease, unspecified whether esophagitis present Take 1 tab up to 4 times per day with food as needed for acid reflux 120 tablet 2 025 Active cyclobenzaprine (Flexeril) 5 MG tabletIndicatio ns:Chronic low back pain, unspecified back pain laterality, unspecified whether sciatica present Take as needed up to TID for back pain 30 tablet 025 Active albuterol 108 (90 Base) MCG/ACT inhalerIndicati ons:Mild intermittent asthma in adult without complication Inhale 2 puffs every 6 (six) hours if needed for wheezing. 20.1 g 025 Active albuterol (2.5 MG/3ML) 0.083% nebulizer solutionIndicat ions:Mild intermittent asthma in adult without complication Take 3 mL (2.5 mg) by nebulization every 6 (six) hours if needed for wheezing. 75 mL 025 Active ibuprofen 600 MG tabletIndicatio ns:Groin pain, left Take 1 tablet (600 mg) by mouth every 6 (six) hours if needed for mild pain or moderate pain for up to 60 doses. Take with food 60 tablet 025 Active ibuprofen 600 MG tabletIndicatio ns:Chronic low back pain, unspecified back pain laterality, unspecified whether sciatica present Take 1 tablet (600 mg) by mouth every 6 (six) hours if needed for mild pain or moderate pain for up to 60 doses. 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 Has not needed albuterol unless sick in last few years. Elevated LFTs 08/05/2023 Vaping nicotine dependence, non-tobacco product 08/05/2023 Alcohol consumption binge drinking 01/23/2019 Alcohol-induced pancreatitis 01/23/2019 Overview (04/01/2024): January 2019 at [facility] [place] 03/30/24 2nd flare Hepatic steatosis 01/23/2019 Overview (04/01/2024): [facility] 2019: CT abdomen ([facility]) Also on CT at ED 03/30/2024, mild diffuse. Encouraging exercise, high fiber, heart healthy diet Overweight (BMI 25.0-29.9) 01/23/2019 Encounters Date Type Department Care Team Description 10/26/2025 Telephone [facility] [address] [place] [address] Oliva Nur ANP Appointment Request 10/21/2025 2:15 PM EST Office Visit [facility] [address] [place] [address] Oliva Nur ANP Groin pain, left (Primary Dx); Left inguinal hernia 10/21/2025 Travel 10/19/2025 2:30 PM EST Office Visit [facility] ADULT DENTAL [address] [place] [address] Mario Bowman DDS Dental caries (Primary Dx) 10/19/[address] [address] Oliva Nur ANP chart prep 10/14/[address] [address] Oliva Nur ANP telephone call 09/10/[address] [address] Oliva Nur ANP November recall 09/09/2025 3:00 PM EDT Office Visit [facility] ADULT DENTAL [address] [place] [address] Johanne Noriega Subgingival dental calculus (Primary Dx); Supragingival dental calculus; Periodontal disease from Last 3 Months Immunizations Immunization Administration Dates Next Due Influenza Injectable Quadriv alant Preservative Free IIV4 MDCK 10/13/2018 Influenza injectable quadriv alent preservative free 08/05/2023,10/24/2021,10/19/2020 Influenza, IIV3, injectable 11/02/2015 Pneumococcal Conjugate PCV 20 06/04/2025 Tdap 01/27/2020 Family History Medical History Relation Name Comments Diabetes Father Hypertension Father Asthma Mother Breast cancer Mother Colon cancer Other maternal cousin Diabetes Sister Relation Name Status Comments Father Mother Other Sister Social History Tobacco Use Types Packs/Day Years Used Date Smoking Tobacco: Former Cigarettes Passive Smoke Exposure: Past Smokeless Tobacco: Current Tobacco Cessation:Ready to Q uit: Not Asked; Counseling Given: Not Answered Comments:Contemplative// pt vapes 01/27/2025 Alcohol Use Standard Drinks/Week Comments Not Currently 0 (1 standard drink = 0.6 oz pur e alcohol) Depression Answer Date Recorded Patient Health Questionnaire-9 Score 0 06/04/2025 Patient Health Questionnaire-9 Score 0 06/04/2025 Last PHQ-9: Questionnaire Data Not on file 0 06/04/2025 Housing Stability Answer Date Recorded What is your housing situation today? I have jerome forbes 06/04/[address] you li ve. Do you have problems with any of the following? None of the above 06/04/2025 Food Insecurity Answer Date Recorded Within the past 12 months, y ou worried that your food would run out before you got money to buy more: Never True 06/04/2025 Within the past 12 months,th e food you bought just didn't last and you didn't have enough money to get more: Never True Transportation Answer Date Recorded In the past 12 months, has l ack of transportation kept you from medical appts, meetings, work or from getting things needed for daily living? No 06/04/2025 Utilities Answer Date Recorded In the past 12 months, has t he electric, gas, oil or water company threatened to shut off services in your home? No 06/04/2025 Depression Answer Date Recorded Patient Health Questionnaire-2 Score 0 06/04/2025 Internet Access Answer Date Recorded Internet Access Q1 Yes 07/13/2024 Internet Access Q2 Not on file 07/13/2024 Sex and Gender Information Value Date Recorded Sex Assigned at Male 09/10/2022 10:31 AM EDT Legal Sex Male 10:31 AM EDT Gender Identity Male 09/10/2022 10:31 AM EDT Sexual Orientation Choose not to disclose 2021 10:31 AM EDT Last Filed Vital Signs Vital Sign Reading Time Taken Comments Blood Pressure 118/76 10/21/2025 2:13 PM EST Pulse 96 10/21/2025 2:13 PM EST Temperature 36.4 C (97.6 F) 10/21/2025 2:13 PM EST Respiratory Rate 18 10/21/2025 2:13 PM EST Oxygen Saturation 98% 01/27/2025 3:38 PM EDT Inhaled Oxygen Concentration - - Weight 85.3 kg (188 lb) 10/21/2025 2:13 PM EST Height 170.2 cm (5' 7 ) 10/21/2025 2:13 PM EST Body Mass Index 29.44 10/21/2025 2:13 PM EST Plan of Treatment Upcoming Encounters Date Type Department Care Team (Late st Contact Info) Description 11/15/2025 3:00 PM EST Office Visit [facility] [address] [place], [place] [phone] 12/16/2025 2:30 PM EST Office Visit [facility] ADULT DENTAL [address] [place], [place] [phone] Mario Bowman, DDS [address] [place], [place] [phone] 03/14/2026 2:15 PM EDT Office Visit [facility] ADULT DENTAL [address] [place], [place] [phone] Noriega Johanne Health Maintenance Due Date Last Done Comments HIV Screening 1983 Family Planning (PISQ) 1998 HPV Vaccines (1 - Male 3-dose series) 1998 Hepatitis C Screening 2001 Hepatitis A Vaccines (1 of 2 - Risk 2-dose series) 2002 Hepatitis B Vaccines (1 of 3 - 19+ 3-dose series) 2002 Dental Prophylaxis 06/07/2025 12/07/2024 COVID-19 Vaccine ( - season) 2025 10/24/2021, 03/17/2021, 02/21/2021 Influenza Vaccine (#1) 2025 , 10/24/2021, 10/19/2020, Additional history exists Dental X-Ray: Bitewings 12/08/2025 12/07/2024 Dental Oral Exam 03/11/2026 09/09/2025, 12/07/2024 Alcohol/Substance Use Screening 06/04/2026 06/04/2025 Depression Screening 06/04/2026 06/04/2025, 06/04/20 Disability Screening 06/04/2026 06/04/2025 SDOH Screening 06/04/2026 06/04/2025 Tobacco Screening 10/21/2026 10/21/2025 Dental X-Ray: Full Mouth 12/08/2027 12/07/2024, 11/0 06/2024 Lipid Panel 02/12/2029 02/13/2024 DTaP/Tdap/Td Vaccines (2 - Td or Tdap) 01/26/2030 01/27/2020 Zoster Vaccines (1 of 2) 2033 RSV Patients and Patients Aged 60 years or older (1 - 1-dose 75+ series) 2058 Pneumococcal Vaccine: Pediatrics (0 to 5 Years) and At-Risk Patients (6 to 49) Years Completed 06/04/2025 HIB Vaccines Aged Out No longer eligi ble based on patient's age to complete this topic IPV Vaccines Aged Out No longer eligi ble based on patient's age to complete this topic Meningococcal B Vaccine Aged Out No l onger eligible based on patient's age to complete this topic Meningococcal Vaccine Aged Out No alden jose carlos eligible based on patient's age to complete this topic RSV under 20 months Aged Out No longe r eligible based on patient's age to complete this topic Rotavirus Vaccines Aged Out No longer eligible based on patient's age to complete this topic Procedures Procedure Name Priority Date/Time Associated Diagnosis Comments CASE PRESENTATION, DETAILED AND EXTENSIVE TREATMENT PLANNING Routine 10/19/2025 2:30 PM EST 9 MDF RESIN-BASED COMPOSITE - 3 SURF, ANTERIOR Routine 10/19/2025 2:30 PM EST 7 MDF RESIN-BASED COMPOSITE - 3 SURF, ANTERIOR Routine 10/19/2025 2:30 PM EST PERIODIC ORAL EVALUATION - ESTABLISHED PATIENT Routine 09/09/2025 3:00 PM EDT CASE PRESENTATION, DETAILED AND EXTENSIVE TREATMENT PLANNING Routine 09/09/2025 3:00 PM EDT ORAL HYGIENE INSTRUCTIONS Routine 09/09/2025 3:00 PM EDT Subgingival dental calculus Supragingival dental calculus Periodontal disease SCALING IN PRESENCE OF MOD-SEVERE GING INFL - FULL MOUTH, AFTER ORAL EVAL Routine 09/09/2025 3:00 PM EDT Subgingival dental calculus Supragingival dental calculus Periodontal disease PROPHYLAXIS - ADULT Routine 12/07/2024 1 :00 PM EST Dental calculus Dental plaque INTRAORAL - COMPLETE SERIES OF RADIOGRAPHIC IMAGES Routine 12/07/2024 1:00 PM EST LIPID PANEL, STANDARD Routine 02/13/2024 8:52 AM EDT from Last 3 Months or Most Recently Relevant to Health Maintenance Results * (ABNORMAL) Lipid Panel, Standard (02/13/2024 8:52 AM EDT) Triglycerides 119 <150 mg/dL [facility] Comment:Desirable Triglyceri de: less than 150 mg/dLBorderline High Triglyceride 150-199 mg/dLHigh Triglyceride: 200-499 mg/dLVery High Triglyceride: greater than or equal to 5OO mg/dL Cholesterol 192 <200 mg/dL [facility] Comment:Desirable Cholestero l: less than 200 mg/dLBorderline High Cholesterol: 200-239 mg/dLHigh Cholesterol: greater than 239 mg/dL LDL Cholesterol Calculated 129(H) <100 mg/dL [facility] Comment:Desirable LDL: less than 100 mg/dLNear Optimal/Above Optimal LDL: 110- 129 mg/dLBorderline High LDL: 130-159 mg/dLHigh LDL: 160-189 mg/dLVery High LDL: greater than or equal to 190 mg/dL HDL Cholesterol 40(L) >40 mg/dL [facility] Comment:Desirable HDL: great er than 40 mg/dL Note: This HDL assay may give artificially low results in patients with liver disease. 02/13/2024 8:52 AM EDT 02/13/2024 11:25 AM EDT us Santi Name LAB BLOOD ORDERABLES Final Resul t [facility] [address] [place] [phone] from Last 3 Months or Most Recently Relevant to Health Maintenance Insurance [facility] , [address] [place] [address] DENTAL - HSN PARTIAL (MEDICAID) Care Teams Stave Jointer Relationship Specialty Start Date End Date Oliva Nur ANP [address] [place] [phone] PCP - General Family Medicine 01/28/20
--- OUTSIDE RECORDS SUMMARY | 2025-11-01 18:12 | XMS_ITS | Clinical Summary ---
Author Organization [address] Address [address] [place] [address] Phone Care Team Providers Care Sales Representative [employer] Name Role Phone Elia Pimentel MD Primary Care Provider [phone] Allergies Active Allergy Reactions Criticality Noted Date Comments Bee Venom Protein (Honey Bee) 11/02/2015 Swelling of the site of the sting Medications albuterol 2.5 mg /3 mL (0.083 %) nebulizer solution Take 1 Vial by nebulization every 4 hours as needed for Wheezing, Shortness of Breath or Cough. 6 Active albuterol HFA (PROAIR HFA ; PROVENTIL HFA ; VENTOLIN HFA) 90 mcg/actuation inhaler Inhale 2 Puffs into the lungs every 4 hours as needed for Cough, Wheezing or Shortness of Breath. 9 Active Active Problems Problem Noted Date Diagnosed Date Asthma 11/13/2024 Tobacco use disorder 11/13/2024 Alcohol consumption binge drinking 01/23/2019 Alcohol-induced pancreatitis 01/23/2019 Overview (11/13/2024): January 2019 at [facility] Fatty liver 01/23/2019 Overview (11/13/2024): [facility] 2019: CT abdomen ([facility]) Overweight (BMI 25.0-29.9) 01/23/2019 Immunizations Immunization Administration Dates Next Due Influenza Quadravalent, MDCK , 0.5ml, preservative free (Flucelvax) 6mo and older 10/13/2018 Influenza trivalent, with pr eservative (Fluzone; Afluria) 6mo and older 11/02/2015 Surgical History Surgery Date Site/Laterality Comments OTHER SURGICAL HISTORY PROCEDURE: DENIES PREVIOUS SURGERY Medical History Medical History Date Comments Asthma DX:Asthma Tobacco use disorder DX:Tobacco use disorder Family History Medical History Relation Name Comments Asthma Mother Breast cancer Mother Colon cancer Other 1 maternal cousin Relation Name Status Comments Father Alive colon dx at age 56 Maternal Grandfather Maternal Grandmother (Age 80s) U K Mother Alive asthma, migrain es, breast cancer over age 45 Other 1 Other 2 Paternal Grandfather Alive Paternal Grandmother (Age 80s) U K Sister Alive healthy Social History Tobacco Use Types Packs/Day Years Used Date Smoking Tobacco: Every Day Smokeless Tobacco: Never Alcohol Use Standard Drinks/Week Comments Yes 0 (1 standard drink = 0.6 oz pur e alcohol) Sex and Gender Information Value Date Recorded Sex Assigned at Not on file Legal Sex Male 5:06 AM EST Gender Identity Not on file Sexual Orientation Not on file Plan of Treatment Health Maintenance Due Date Last Done Comments DTaP,Tdap,and Td Vaccines (1 - Tdap) 2002 Hepatitis B Vaccines (1 of 3 - 19+ 3-dose series) 2002 Pneumococcal Vaccine: Pediatrics (0 to 5 Years) and At-Risk Patients (6 to 49 Years) (1 of 2 - PCV) 2002 HPV Vaccines (1 - 3-dose SCD M series) 2010 Depression Screening 11/11/2024 Cholesterol Screening (Lipid Panel) 11/13/2024 01/23/2019 HIV Screening 11/13/2024 Hepatitis C Screening 11/13/2024 Social Influencers of Health Screening 11/13/2024 COVID-19 Vaccine (1 - 2024-2 6 season) 2025 Influenza Vaccine (#1) 2025 8, 11/02/2015 RSV Immunization Adult Patients (1 - 1-dose 75+ series) 2058 HIB Vaccines Aged Out No longer eligi ble based on patient's age to complete this topic Hepatitis A Vaccines Aged Out No long er eligible based on patient's age to complete this topic IPV Vaccines Aged Out No longer eligi ble based on patient's age to complete this topic MMR Vaccines Aged Out No longer eligi ble based on patient's age to complete this topic Meningococcal ACWY Vaccine Aged Out N o longer eligible based on patient's age to complete this topic Meningococcal B Vaccine Aged Out No l onger eligible based on patient's age to complete this topic RSV Immunization Patients Under 20 months Aged Out No longer eligible b ased on patient's age to complete this topic Varicella Vaccines Aged Out No longer eligible based on patient's age to complete this topic Procedures Procedure Name Priority Date/Time Associated Diagnosis Comments LIPID PANEL Routine 01/23/2019 from Last 3 Months or Most Recently Relevant to Health Maintenance Results * (ABNORMAL) Lipid panel (01/23/2019) LDL/HDL Ratio 5(A) 0 - 4 Triglycerides 151(A) 0 - 150 mg/dL Cholesterol 202(A) 0 - 200 mg/dL HDL 39(A) >=40 mg/dL LDL Cholesterol 133(A) 0 - 100 mg/dL Blood Venous blood specimen / Unknown Historical Provider LAB BLOOD ORDERABLES Laly azul Result from Last 3 Months or Most Recently Relevant to Health Maintenance Insurance [facility] Care Teams Sales Representative [employer] Relationship Specialty Start Date End Date Elia Pimentel MD [address] [place] [id number] PCP - General Internal Medicine 01/11/20
--- OUTSIDE RECORDS SUMMARY | 2025-11-01 18:12 | XMS_ITS | Patient Health Record ---
Author Organization [facility] Address [address] [place] [address] Care Team Providers Care Field Staff Manager Name Role Phone LEIGHTON CORCORAN N.P. Primary Care Provider Salvatore Gonzalez [phone] Allergies No Known Allergies Results Component Value Reference Range Notes Pathology (Not yet reviewed by provider) Interpretation: Performing Lab:[facility], [address] [place] [id number] Notes/Report: Reason For Referral No Information Medications Medication SIG (Take, Route, Fr equency, Duration) Notes Start Date End Date Status Motrin Not-Taking /PRN Social History Tobacco Use: Social History Observation Description Date Details (start date - stop date) Former Smoker NA - NA Social History Drugs/Alcohol: Social Info Question Answer Notes Alcohol Screen Did you have a drink containing alcohol in the past year? No Points 0 Interpretation Negative Tobacco Use: Social Info Question Answer Notes Tobacco Use/Smoking Patient is a former smoker How long has it been since you last smoked? 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 Section Notes: Vapes nicotine No EtOH since 03/28/2024 as of the 05/2024OV Problems Problem Type SNOMED Code ICD Code Onset Dates Problem Status W/U Status Risk Notes Problem Colon cancer screening (531012307) Colon cancer screening (Z12.11) Active confirmed Problem Alcoholic fatty liver (25754790) Alcoholic fatty liver (K70.0) Active confirmed Problem Family History of Cancer of Colon (Situation) (527372473) Family history of colon cancer (Z80.0) Active confirmed Problem Acute pancreatitis (810434717) Alcohol induced acute pancreatitis without necrosis or infection (K85.20) Active confirmed Encounters Encounter Location Date Provider Diagnosis [facility] Outpatient [address] [place], [place] [phone] 04/12/2025 Salvatore Sheppard Colon cancer scree barbara [...] hemorrhoids (ICD-10 - K64.8) Plan Of Treatment Pending Test Test Name Order Date LIVER PROFILE 05/19/2024 CBC w DIFF 05/19/2024 Lipase 05/19/2024 Pathology 04/12/2025 Future Test Test Name Order Date COLONOSCOPY 05/19/2024 Insurance Providers Payer Name Payer Address Payer Phone Subscriber Number Group Number Insured Name Patient Relationship to Insured Coverage Start Date Coverage End Date [facility] [address] [place] [address] [id number] EMELY LOGAN Self - patient is the insured Medical (General) History Medical History History ICD Code Denies [place],DM,CVA,renal disease Asthma Alcohol-related pancreatitis . He describes at least 3 episodes, with the most recent one in the spring for which he was evaluated at [facility] ER. He has had normal triglyceride levels. He describes a negative abdominal ultrasound during one of his episodes of pancreatitis. Fatty liver seen on CT scan although wit h normal LFTs He describes a history of al cohol abuse intermittently but with sobriety since March of 2024 as of the May 2024 office visit Surgical History Surgery Date(Month/Year) Left inguinal and umbilical hernia repai r
--- OUTSIDE RECORDS SUMMARY | 2025-11-01 18:12 | XMS_ITS | Data Portability ---
Author Organization [facility] [id number] Address [address] [place] [address] Assessment No assessment recorded. Plan of Treatment Reminders Order Date Submit Date Provider Last Modified By Organization Details Last Modified Time Details Appointments None recorded. Lab None recorded. Referral None recorded. Procedures None recorded. Surgeries None recorded. Imaging None recorded. Medication Orders Bactrim DS 800 mg-160 mg tablet 023 023 [facility] #[id number], [address] [place], [address], 3 15:06:38 Patient TargetsNo targets recorded. Patient Instructions Encounter Date Encounter Id Patient Instructions Last Modified By Organization Details Last Modified Time 01/12/2023 [id number] Cellulitis is a skin infection caused by bacteria, most often strep or staph. It often occurs after a break in the skin from a scrape, cut, bite, or puncture, or after a rash. Cellulitis may be treated without doing tests to find out what caused it. But your doctor may do tests, if needed, to look for a specific bacteria, like methicillin-resist ant Staphylococcus aureus (MRSA). The doctor has checked you carefully, but problems can develop later. If you notice any problems or new symptoms, get medical treatment right away. How can you care for yourself at home? Take your antibiotics as directed. Do not stop taking them just because you feel better. You need to take the full course of antibiotics. Prop up the infected area on pillows to reduce pain and swelling. Try to keep the area above the level of your heart as often as you can. If your doctor told you how to care for your infection, follow your doctor's instructions. If you did not get instructions, follow this general advice: Wash the area with clean water 2 times a day. Don't use hydrogen peroxide or alcohol, which can slow healing. You may cover the area with a thin layer of petroleum jelly, such as Vaseline, and a non-stick bandage. Apply more petroleum jelly and replace the bandage as needed. Be safe with medicines. Take pain medicines exactly as directed. If the doctor gave you a prescription medicine for pain, take it as prescribed. If you are not taking a prescription pain medicine, ask your doctor if you can take an udgo-xfa-oylwjhs medicine. Not available 01/12/2023 15:06:35 A skin abscess i s a bacterial infection that forms a pocket of pus. A boil is a kind of skin abscess. The doctor may have cut an opening in the abscess so that the pus can drain out. You may have gauze in the cut so that the abscess will stay open and keep draining. You may need antibiotics. You will need to follow up with your doctor to make sure the infection has gone away. The doctor has checked you carefully, but problems can develop later. If you notice any problems or new symptoms, get medical treatment right away. How can you care for yourself at home? Apply warm and dry compresses, a heating pad set on low, or a hot water bottle 3 or 4 times a day for pain. Keep a cloth between the heat source and your skin. If your doctor prescribed antibiotics, take them as directed. Do not stop taking them just because you feel better. You need to take the full course of antibiotics. Take pain medicines exactly as directed. If the doctor gave you a prescription medicine for pain, take it as prescribed. If you are not taking a prescription pain medicine, ask your doctor if you can take an glyw-abh-dsjawvl medicine. Keep your bandage clean and dry. Change the bandage whenever it gets wet or dirty, or at least one time a day. If the abscess was packed with gauze: Keep follow-up appointments to have the gauze changed or removed. If the doctor instructed you to remove the gauze, follow the instructions you were given for how to remove it. After the gauze is removed, soak the area in warm water for 15 to 20 minutes 2 times a day, until the wound closes. Not available 01/12/2023 15:06:27 Reason for Referral None Reported. Problems Name Problem SNOMED Code Status Onset Date Resolution Date Notes Provider Name and Address Organization Details Recorded Time Asthma [id number] Active 023 [facility] 01/12/2023 14:06:40 Problem Notes None recorded. Procedures Surgical History Date Name Laterality Status Provider Name and Address Organization Details Recorded Time hernia repair completed Denia Hutton [facility] 01/12/2023 14:07:03 Imaging Results None recorded. Procedure Notes None recorded. Medical Equipment None Reported. Allergies No known drug allergies Medications Name Sig Start Date Stop Date Status Note LastModified by Organization Details LastModified Time ibuprofen 800 mg tablet TAKE 1 TABLET BY MOUTH EVERY 6 TO 8 HOURS NEEDED FOR PAIN 01/12 completed Not Available Not Available Not Available ondansetron HCl 4 mg tablet TAKE 1 TABLET BY MOUTH EVERY 8 HOURS FOR 5 DAYS NEEDED FOR NAUSEA/VO MITING 01/12 completed Not Available Not Available Not Available nicotine (polacrilex ) 4 mg gum CHEW 1 PIECE OF GUM BY ORAL ROUTE EVERY 2 HOURS OR NEEDED WHEN YOU CRAVE A CIGARETTE active Not Available Not Available No t Available oxycodone 5 mg tablet TAKE 1 TABLET BY MOUTH EVERY 4 HOURS NEEDED FOR PAIN PARTIAL FILL UPON PATIENT REQUEST. 01/12 completed Not Available Not Available Not Available Bactrim DS 800 mg-160 mg tablet Take 1 tablet every 12 hours by oral route with meals for 10 days. 2022 active Not Available Not Available Not Avai lable albuterol 90 mcg-budeson daisy 80 mcg/actuati on HFA aerosol inhaler Inhale by inhalatio n route. active Not Available Not Available No t Available Vitals Date Recorded Body height Body mass index (BMI) Body weight Oxygen saturation Pain severity - 0-10 verbal numeric rating [Score] - Reported Heart rate Respiratory rate Body temperature Systolic And Diastolic Provider Name and Address Organization Details Last Updated DateTime 3 170.18 cm 27.6 kg/m2 32016.2 6 g 99 % 4 74 /min 20 /min 98 [degF] 107/73 mm[Hg] Denia Hutton [facility] 14:06:00 Social History Question Answer Notes LastModified by Organizat [employer] Details LastModified Time Tobacco Smoking Status Current Every Day Smoker [facility] 01/12/2023 14:06:56 Have You Had Direct Contact, Or Contact During Intimacy, With Monkeypox Rash, Scabs, Or Body Fluids From A Person With Monkeypox? No Information not available 01/12/2023 How Much Tobacco Do You Smoke? 0.5 PPD Information not available 01/12/2023 Have You Recently Traveled Abroad? No Information not available 01/12/2023 Sex: Unknown Functional Status Question Answer Note LastModified by Organizat ion Details LastModified Time Do you use any illicit or recreational drugs? No Information not available 01/12/2023 Do you or have you ever used any other forms of tobacco or nicotine? No Information not available 01/12/2023 What is your level of alcohol consumption? None Information not available 01/12/2023 Mental Status None recorded. Family History Relationship Description Onset Age of this Age Resolved Age Notes LastModified by Organization Details LastModified Time Father No current problems or disability Not available 01/12 14:06:42 Mother No current problems or disability Not available 01/12 14:06:42 Medical History No medical history recorded. Past Encounters Encounter ID Performer Location Encounter Start Date Encounter Closed Date Diagnosis/Indication Diagnosis SNOMED-CT Code Diagnosis ICD10 Code Diagnosis IMO Codes Diagnosis Note [id number] [facility] [address] [facility] [place] [address] 02/19/2021 15:22:18 02/19/2021 16:53:07 [id number] [address] [place] [address] 01/11/2020 16:02:15 01/11/2020 16:45:40 [id number] Dionicio Knight NP [facility] [address] [place] [address] 01/12/2023 13:44:20 01/12/2023 15:08:32 Abscess of right thigh [id number] L02.415 Health Concerns Section Related Observation LastModified by Organization Detai ls LastModified Time None Recorded Concern Status LastModified by Organization Details LastModified Time None Recorded Advance Directives Directive None Recorded Payers Insurance Date Sequence Insurance Name Policy Number Policy [place] Covered Member ID [place] Member ID Guarantor Name 01/12/[address] [place] [address] [id number] Kieliza Sabillon [id number] [facility] Notes Date Note Type Note Provider Name and Address Organization Details Recorded Time 01/12/2023 text/html AbscessReported by PatientHPIFor quality, patient reportspainful,tender ness,warmth,swelling, andrednessbut reportsno drainage. For context, patient reportscellulitis. For location, patient reportsthighs. For onset/timing, patient reportsgradual. For severity, patient reportsworsening. For associated symptoms, patient reportsno fever,no red streaking,no chills,no malaise,no headache, andno enlarged lymph nodes. Dionicio Knight NP [address] [place], [address], [place] - [facility] 01/12/2023 15:08:24
== END 2025-11-01 14:58 | disposition home or self-care (01) ==
LOC: HO.US 14:57
PROVIDERS: PCP Nurse Practitioner Primary Care; Visit Provider Nurse Practitioner Primary Care
DX: K40.90 Unilateral inguinal hernia, without obstruction or gangrene, not specified as recurrent (principal)
CPT/HCPCS: 76870

== ENCOUNTER → 2025-11-01 14:59 | Outpatient (BNV) | payer OTHER, SELFPAY | PROVIDERS: PCP Nurse Practitioner Primary Care; Visit Provider Radiology Diagnostic Radiology | DX: N50.3 Cyst of epididymis (principal) | CPT/HCPCS: 76870 ==

== ENCOUNTER 2025-11-02 12:36 | Outpatient (AMB) | payer OTHER, SELFPAY ==
--- OUTSIDE RECORDS SUMMARY | 2024-09-14 05:40 | XMS_ITS ---
Author Organization [facility] Address [address] [place] [phone] Care Team Providers Care Services Executive Name Role Phone LEIGHTON CORCORAN N.P. Primary Care Provider Salvatore Gonzalez [phone] REASON FOR VISIT screening,fam hx colon ca Encounters Encounter Location Date Provider [place] [facility] [place] [address] [place] [phone] 09/14/2024 Salvatore Sheppard Plan Of Treatment No Information Progress Notes * ARIANNA LOGANOB:1985 (40 yo M)Acc No.[id number]:09/14/2024 COLON WITH MAC Patient: EMELY RAWLS Provider: Ed Sheppard MD :1985 A ge:39 Y S ex:Male Date:09/14/2024 Address:[address] [place], [place] [phone] Pcp:LEIGHTON CORCORAN N.P. Subjective: * Chief Complaints: * S creening,fam hx colon ca * The named appointment provid er may or may not be the originator of this progress note, and it is not deemed complete until electronically signed by the appointment provider. Sign off status: Pending * Provider: Ed Sheppard MD Date: 11/14/2023 Generated for Yosef vargas/Mark/eThusamsmitting on: 01/03/2025 01:38 PM EST
--- OUTSIDE RECORDS SUMMARY | 2025-01-04 05:10 | XMS_ITS ---
Author Organization [facility] Address [address] [place] [phone] Care Team Providers Care Truck Rental Manager Name Role Phone LEIGHTON CORCORAN N.P. Primary Care Provider Salvatore Gonzalez [phone] REASON FOR VISIT screening,fam hx colon ca Encounters Encounter Location Date Provider Diagnosis [facility] [place] [address] [place] [phone] 01/04/2025 Salvatore Sheppard Plan Of Treatment No Information Progress Notes * ARIANNA LOGANOB:1985 (40 yo M)Acc No.[id number]:01/04/2025 COLON WITH MAC Patient: EMELY RAWLS Provider: Ed Sheppard MD :1985 A ge:39 Y S ex:Male Date:01/04/2025 Address:[address] [place], [place] [phone] Pcp:LEIGHTON CORCORAN N.P. Subjective: * Chief Complaints: * S creening,fam hx colon ca * The named appointment provid er may or may not be the originator of this progress note, and it is not deemed complete until electronically signed by the appointment provider. Sign off status: Pending * Provider: Ed Sheppard MD Date: 0 01/04/2025 Generated for Yosef vargas/Mark/eThusamsmitting on: 01/03/2025 01:38 PM EST
--- OUTSIDE RECORDS SUMMARY | 2025-04-12 07:40 | XMS_ITS ---
Author Organization [facility] Address [address] [place] [phone] Care Team Providers Care Medical Doctor Name Role Phone LEIGHTON CORCORAN N.P. Primary Care Provider Salvatore Gonzalez [phone] REASON FOR VISIT screening,fam hx colon ca Encounters Encounter Location Date Provider Diagnosis [facility] [place] [address] [phone] 04/12/2025 Salvatore Sheppard Colon cancer scree barbara Z12.11 ; Family history of colon cancer Z80.0 ; Rectal polyp K62.1 and Internal hemorrhoids K64.8 Assessments Encounter Date Diagnosis (ICD Code) Assessment Notes Treatment Notes Treatment Clinical Notes Section Notes 04/12/2025 Colon cancer screening (ICD-10 - Z12.11) 04/12/2025 Family history of colon cancer (ICD-10 - Z80.0) 04/12/2025 Rectal polyp (ICD-10 - K62.1) 04/12/2025 Internal hemorrhoids (ICD-10 - K64.8) Plan Of Treatment No Information Progress Notes * ARIANNA LOGANOB:1985 (40 yo M)Acc No.[id number]:04/12/2025 COLON WITH MAC Patient: Ed CARLA EMELY Provider: Ed Sheppard MD :1985 A ge:40 Y S ex:Male Date:04/12/2025 Address:[address] [place], [place] [phone] Pcp:LEIGHTON CORCORAN N.P. Subjective: * Chief Complaints: * S creening,fam hx colon ca Assessment: * Assessment: 1. C olon cancer screening - Z12.11 (Primary) 2 . F amily history of colon cancer - Z80.0 3 . R ectal polyp - K62.1 4 . I nternal hemorrhoids - K64.8 Plan: * Procedure Codes: 4 5385 LESION REMOVAL COLONOSCOPY, Modifiers: PT Billing Information: * Procedure Codes: 14414 LESION REMOVAL COLONOSCOPY. Modifiers: PT * The named appointment provid er may or may not be the originator of this progress note, and it is not deemed complete until electronically signed by the appointment provider. Sign off status: Pending * Provider: Ed Sheppard MD Date: 0 04/12/2025 Generated for Yosef vargas/Mark/Lizethitting on: 01/03/2025 01:37 PM EST
--- NOTE | 2025-11-02 12:45 | MHC.OFFVIS ---
Vital Signs 11/02/25 12:56 Height 5 ft 7 in Weight 190 lb BMI 29.8 BP 122/81 Blood Pressure Location Lt brachial Position Sitting Intake Visit Reasons: recurrent LIH/Hx of hernia repair-walko Intake Note: Patient is seen in office for evaluation of a recurrent left inguinal hernia. Pt c/o: pain in the left groin for the past couple of months, on and off, feels lump in the area (sometimes), denies n/v/d/c, pain is worse with sexual intercourse, had an ultrasound done 11/01/25 *Prev repaired by Dr Hanley (10/25/22) National Business Director Required: No Accompanied by: Self / Same As Patient Allergies No Known Allergies (No Known Allergies*) Allergy (Verified 11/02/25 12:54) Medication List - Last Reconciled 11/02/25 by Wm Partida MD albuterol sulfate 90 mcg/actuation 2 puffs inhalation Q4-6H PRN HPI Comments Details: Patient has a history of a open umbilical an open left inguinal hernia repair in the remote past. He reports relative recent onset of pain in the left hemiscrotum (this is the site of his open inguinal hernia repair) during activities ?like when I am intimate with my ?. He denies any obstructive symptoms he denies any feeling of a mass or a bulge he denies any bowel or bladder problems. These are the only 2 surgeries that he has had. PFSH Medical History Fatty liver Hx of pancreatitis Asthma Surgical History Hx of umbilical hernia repair Hx of left inguinal hernia repair Family History Mother Asthma Social History Household Members: Significant Other and Children Housing: House Are you a primary restorative care technician to a significant other at home: No Do you presently have visiting nurse or other home services: No Alcohol intake: current Alcohol intake frequency: does not drink Patient Tobacco Use Status: Current everyday Tobacco user Tobacco use type: Smokeless Tobacco Cigarettes Per Day: 5 e-Cigarette/Vaping Use: Currently Using Substance Use Type: Marijuana Current occupational status: employed Review of [employer] Const All systems reviewed & are unremarkable except as noted in HPI and below Physical Exam Vital Signs: Last Vital Signs BP 122/81 11/02/25 12:56 BMI result Body Mass Index 29.8 Const General: cooperative, healthy appearing and comfortable Orientation/consciousness: oriented to person, oriented to place and oriented to time HEENT Head: Yes normal to inspection Ears: hearing grossly normal bilaterally General nose exam: Normal external nose present Face and sinus: Yes normal facial exam Eyes Pupils: Equal, round and reactive pupils present EOM: EOMs intact bilaterally Neck Neck: Yes normal visual inspection Chest Chest palpation & inspection: normal inspection of the chest Resp Effort & Inspection: normal respiratory effort and able to speak in complete sentences Cardio Rate: regular rate Rhythm: regular rhythm GI Other: Soft, nontender nondistended small infraumbilical curved scar. No evidence of hernia recurrence. No evidence of hepatosplenomegaly. Left open inguinal hernia repair scar. No evidence of recurrence during Valsalva or rigors coughing. Patient locates the region of his discomfort in the lateral aspect of the left hemiscrotum. No evidence of abnormalities in the scrotal contents. Neuro General: oriented to person, oriented to place and oriented to time Cranial nerves: Yes CN's II-XII intact bilaterally and Yes Equal, round and reactive pupils present Assessment & Plan Assessment & Plan (1) Abdominal pain in male: Code(s): R10.9 - Unspecified abdominal pain Category: Medical Plan: I told the patient I did not know what was responsible for his pain. It does seem to be along the distribution of the left ileal inguinal nerve. We that as it may the ultrasound was not indicative of any radiographically evident etiology responsible for the problem. It was suggested on the ultrasound that a CT scan of the abdomen and pelvis be pursued. I think this is an appropriate next step. We will see if we can arrange this for him. In the meantime he was encouraged to contact us should he have any questions or problems. He said he was happy with that plan. (2) Deep inguinal pain, left: Comment: As above Code(s): R10.32 - Left lower quadrant pain Category: Medical Plan: As above Orders: Orders CT abdomen pelvis w IV con Today R10.9 - Unspecified abdominal pain Coding Level of Care Code New Pt Level 3 (13987) Diagnoses Abdominal pain in male R10.9 Deep inguinal pain, left R10.32 Time Spent (min) 30 Comment Record review patient visit and coordination of care time
[2025-11-02 12:56] VITALS: BP 122/81; BMI 29.8
--- OUTSIDE RECORDS SUMMARY | 2025-11-02 13:38 | XMS_ITS | Clinical Summary ---
Author Organization [employer] Address [address] [place] [address] Care Team Providers Care Gin Pole Operator Name Role Phone Leighton Corcoran MICKIE Primary Care Provider [phone] Allergies Active Allergy Reactions Criticality Noted Date [...] pancreatitis 01/23/2019 Overview (04/01/2024): January 2019 at [facility] 03/30/24 2nd flare Hepatic steatosis 01/23/2019 Overview (04/01/2024): [facility] 2019: [facility] abdomen [facility]) Also on CT at ED 03/30/2024, mild diffuse. Encouraging exercise, high fiber, heart healthy diet Overweight (BMI 25.0-29.9) 01/23/2019 Encounters Date Type Department Care Team Description 10/26/2025 Telephone [facility] [address] [place] [address] Leighton Corcoran ANP Appointment Request 10/21/2025 2:15 PM EST Office Visit [facility] [address] [place] [address] Leighton Corcoran ANP Groin pain, left (Primary Dx); Left inguinal hernia 10/21/2025 Travel 10/19/2025 2:30 PM EST Office Visit [facility] [address] [place] [address] Mario Bowman DDS Dental caries (Primary Dx) 10/19/[address] [address] Leighton Corcoran ANP chart prep 10/14/[address] [address] Leighton Corcoran ANP telephone call 09/10/[address] [address] Leighton Corcoran ANP November recall 09/09/2025 3:00 PM EDT Office Visit [facility] [address] [place] [address] Johanne Noriega Subgingival dental calculus (Primary Dx); [...] Visit [facility] [address] [place], [place] [phone] 12/16/2025 2:30 PM EST Office Visit [facility] [address], [place] [phone] Mario Bowman, DDS [address], [place] [phone] 03/14/2026 2:15 PM EDT Office Visit [facility] [address], [place] [phone] Noriega Johanne Health Maintenance Due Date Last [...] Procedure Name Priority Date/Time Associated Diagnosis Comments US SCROTUM Routine 11/01/2025 3:34 PM EST Left inguinal hernia CASE PRESENTATION, DETAILED AND EXTENSIVE TREATMENT PLANNING [...] Recently Relevant to Health Maintenance Results * US Scrotum (11/01/2025 3:34 PM EST) Anatomical Region Laterality Modality Body Ultrasound 11/01/2025 3:34 PM EST Narrative 11/02/2025 7:15 AM EST [address] [address] Ultrasound Report Signed Patient: Ki Banegas MR#: [id number] : 1985 Acct:[id number] Age/Sex: 40 / M ADM Date: 11/01/25 Loc: HO.US Attending Dr: Leighton Corcoran NP Ordering Physician: LEIGHTON CORCORAN NP Date of Service: 11/01/25 Procedure(s): US scrotum Accession Number(s): [id number] cc: LEIGHTON CORCORAN NP Reason for Exam: h/o L inguinal hernia 10/2022, pain radiating into L testicle EXAMINATION: US SCROTUM HISTORY: h/o L inguinal hernia 10/2022, pain radiating into L testicle. COMPARISON: There are no prior studies available for comparison. FINDINGS: Real-time grayscale ultrasound imaging of the scrotum was performed. RIGHT TESTICLE: The right testis measures 5.0 x 2.3 x 2.5 cm and demonstrates normal homogeneous echotexture. No masses are seen. The right testis demonstrates normal color Doppler flow. RIGHT EPIDIDYMIS: Normal in size, shape, and vascularity. LEFT TESTICLE: The left testis measures 4.7 x 1.9 x 3.2 cm and demonstrates normal homogeneous echotexture. There is a cyst of the tunica measuring 4 mm in size. No testicular masses are seen. The left testis demonstrates normal color Doppler flow. LEFT EPIDIDYMIS: Normal in size, shape, and vascularity. There are 2 cysts in the epididymal head measuring 4 x 5 x 5 mm and 3 x 2 x 3 mm. VARICOCELE: None. HYDROCELE: No significant hydrocele is seen. OTHER COMMENTS: None. US/US scrotum IMPRESSION: Left epididymal head cysts as described. Otherwise unremarkable scrotal ultrasound. If there is clinical concern for a recurrent left inguinal hernia, CT is recommended. Electronically signed by: Salvatore Kwon MD 11/02/2025 07:12 AM EST Dictated By: Salvatore Kwon MD Signed By: <Electronically signed by Salvatore Kwon MD in OV> 11/02/25 0712 DD/ 1534 TD/TT: 11/01/25 1546 Program Consultant: Procedure Note Donotuseinterpreter, Image - 11/02/2025 [place] [address] Ultrasound Report Signed Patient: Daniel Banegas#: [id number] : 1985Acct:[id number] Age/Sex: 40 / MADM Date: 11/01/25 Loc: HO.US Attending Dr: Leighton Corcoran NP Ordering Physician: LEIGHTON CORCORAN NP Date of Service: 11/01/25 Procedure(s): US scrotum Accession Number(s): [id number] cc: LEIGHTON CORCORAN NP Reason for Exam: h/o L inguinal hernia 10/2022, pain radiating into Ltesticle EXAMINATION: US SCROTUM HISTORY: h/o L inguinal hernia 10/2022, pain radiating into L testicle. COMPARISON: There are no prior studies available for comparison. FINDINGS: Real-time grayscale ultrasound imaging of the scrotum was performed. RIGHT TESTICLE: The right testis measures 5.0 x 2.3 x 2.5 cm and demonstrates normal homogeneous echotexture. No masses are seen. The right testis demonstrates normal color Doppler flow. RIGHT EPIDIDYMIS: Normal in size, shape, and vascularity. LEFT TESTICLE: The left testis measures 4.7 x 1.9 x 3.2 cm and demonstrates normal homogeneous echotexture. There is a cyst of the tunica measuring 4 mm in size. No testicular masses are seen. The left testis demonstrates normal color Doppler flow. LEFT EPIDIDYMIS: Normal in size, shape, and vascularity. There are 2 cysts in the epididymal head measuring 4 x 5 x 5 mm and 3 x 2 x 3 mm. VARICOCELE: None. HYDROCELE: No significant hydrocele is seen. OTHER COMMENTS: None. US/US scrotum IMPRESSION: Left epididymal head cysts as described. Otherwise unremarkable scrotal ultrasound. If there is clinical concern for a recurrent left inguinal hernia, CT is recommended. Electronically signed by: Salvatore Kwon MD 11/02/2025 07:12 AM EST Dictated By: Salvatore Kwon MD Signed By: <Electronically signed by Salvatore Kwon MD in OV> 11/02/25 0712 DD/ 1534 TD/TT: 11/01/25 1546 Program Consultant: us Leighton CORADO IMVera US PROCEDURES Edited Result - Final * (ABNORMAL) Lipid Panel, Standard (02/13/2024 8:52 AM EDT) Triglycerides 119 <150 mg/dL [facility] Comment:Desirable Triglyceri de: less than 150 mg/dLBorderline High Triglyceride 150-199 mg/dLHigh Triglyceride: 200-499 mg/dLVery High Triglyceride: greater than or equal to 5OO mg/dL Cholesterol 192 <200 mg/dL [facility] Comment:Desirable Cholestero l: less than 200 mg/dLBorderline High Cholesterol: 200-239 mg/dLHigh Cholesterol: greater than 239 mg/dL LDL Cholesterol Calculated 129(H) <100 mg/dL [facility] Comment:Desirable LDL: less than 100 mg/dLNear Optimal/Above Optimal LDL: 110- 129 mg/dLBorderline High LDL: 130-159 mg/dLHigh LDL: 160-189 mg/dLVery High LDL: greater than or equal to 190 mg/dL HDL Cholesterol 40(L) >40 mg/dL [facility] Comment:Desirable HDL: great er than 40 mg/dL Note: This HDL assay may give artificially low results in patients with liver disease. 02/13/2024 8:52 AM EDT 02/13/2024 11:25 AM EDT us Santi Chung MD LAB BLOOD ORDERABLES Final Resul t [facility] [address] [place] [address] [phone] from Last 3 Months or Most Recently Relevant to Health Maintenance Insurance [facility] , [address] [place] [address] DENTAL - HSN PARTIAL (MEDICAID) Care Teams Gin Pole Operator Relationship Specialty Start Date End Date Leighton Corcoran ANP [address] [place] [address] PCP - General Family Medicine 01/28/20
--- OUTSIDE RECORDS SUMMARY | 2025-11-02 13:38 | XMS_ITS | Patient Health Record ---
Author Organization [facility] Address [address] [place] [address] Care Team Providers Care Book Canvasser Name Role Phone LEIGHTON CORCORAN N.P. 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 Section Notes: Vapes nicotine No EtOH since 03/28/2024 as of the 05/2024OV Problems Problem Type SNOMED Code ICD Code Onset Dates Problem Status W/U Status Risk Notes Problem Colon cancer screening (766365165) Colon cancer screening (Z12.11) Active confirmed Problem Alcoholic fatty liver (79291460) Alcoholic fatty liver (K70.0) Active confirmed Problem Family History of Cancer of Colon (Situation) (674980811) Family history of colon cancer (Z80.0) Active confirmed Problem Acute pancreatitis (148431482) Alcohol induced acute pancreatitis without necrosis or infection (K85.20) Active confirmed Encounters Encounter Location Date Provider Diagnosis 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 He has had normal triglyceride [...]
--- OUTSIDE RECORDS SUMMARY | 2025-11-02 13:38 | XMS_ITS | Encounter Summary ---
Author Organization [employer] Address [address] [place] [address] [address] [place] [address] Care Team Providers Care Remotely Piloted Vehicle Controller Name Role Phone Oliva Nur Primary Care Provider [phone] Reason for Referral * Imaging (Routine) - Closed Specialty Diagnoses / Procedures Referred By Contavi t Referred To Contact Radiology Diagnoses Lower abdominal pain Procedures US Abdomen Limited(Soft Tissue) Oliva Nur ANP [address] [place] [address] Phone: tel: fax: Diagnostic Imaging, [facility] [address] [place] [address] Phone: tel: fax: Referral ID Status Reason Start Date Expiration Date Visits Re quested Visits Authorized [id number] Closed 10/29/2023 10/28/2024 1 1 Reason for Visit * Reason Onset Date Comments Order(s) 10/25/2023 Encounter Details Date Type Department Care Team ([facility] st Contact Info) Description 10/25/2023 Telephone [facility] MEDICINE [address] [place], [place] [phone] Oliva Nur ANP [address] [place], [place] [phone] Order(s) Social History Tobacco Use Types Packs/Day [...] If any questions please contact Racheal at [phone]. documented in this encounter Plan of Treatment Upcoming Encounters Date Type Department Care Team (Late st Contact Info) Description 11/15/2025 3:00 PM EST Office Visit [facility] ADULT DENTAL [address] [facility] [place] [phone] 12/16/2025 2:30 PM EST Office Visit [facility] ADULT DENTAL [address] [place] [address] Mario Bowman DDS [address] [place] [address] 03/14/2026 2:15 PM EDT Office Visit [facility] ADULT DENTAL [address] [place] [address] Johanne Noriega Scheduled Orders Name Type Priority Associated Diagnoses Orde r Schedule US Abdomen Limited(Soft Tissue) Imaging Routine Lower abdominal pain Expected: 10/29/2023, Expires: 10/29/2024 documented as of this encounter Visit Diagnoses Diagnosis Lower abdominal pain- Primary Abdominal pain, other specified site documented in this encounter Care Teams Remotely Piloted Vehicle Controller Relationship Specialty Start Date End Date Oliva Nur ANP [address] [place] [address] PCP - General Family Medicine 01/28/20 documented as of this encounter
--- OUTSIDE RECORDS SUMMARY | 2025-11-02 13:38 | XMS_ITS | Encounter Summary ---
Author Organization [employer] Address [address] [facility] [address] [place] [address] Care Team Providers Care Material Movers Name Role Phone Liudmila Oliva CORADO Primary Care Provider [phone] Reason for Visit * Reason Comments Med Refill Encounter Details Date Type Department Care Team ([facility] st Contact Info) Description 01/12/2025 Refill [facility] ADULT DENTAL [address] [place], [place] [phone] Mario Bowman, SAM [address] [place] [address] Severe dental caries; Dental abscess; Non-restorable tooth [...] Description 11/15/2025 3:00 PM EST Office Visit [facility] ADULT D[facility]AL [address] [place] [address] 12/16/2025 2:30 PM EST Office Visit [facility] ADULT DENTAL [address] [place] [address] Mario Bowman DDS [address] [place] [address] 03/14/2026 2:15 PM EDT Office Visit [facility] ADULT DENTAL [address] [place] [address] Johanne Noriega documented as of this encounter Visit Diagnoses Diagnosis Severe dental caries Dental abscess Periapical abscess without sinus Non-restorable tooth documented in this encounter Care Teams Material Movers Relationship Specialty Start Date End Date Oliva Nur ANP [address] [place] [id number] PCP - General Family Medicine 01/28/20 documented as of this encounter
--- OUTSIDE RECORDS SUMMARY | 2025-11-02 13:38 | XMS_ITS | Clinical Summary ---
Author Organization [address] Address [address] [place] [address] Phone Care Team Providers Care Wheel Lacer And Truer Name Role Phone Elia Pimentel MD Primary Care Provider [phone] Allergies Active Allergy Reactions Criticality Noted Date [...] 01/23/2019 Overview (11/13/2024): January 2019 at [facility] Fatty liver 01/23/2019 Overview (11/13/2024): [facility] 2019: CT abdomen ([facility]) Overweight (BMI 25.0-29.9) 01/23/2019 Immunizations Immunization Administration [...] Most Recently Relevant to Health Maintenance Insurance [facility] Care Teams Wheel Lacer And Truer Relationship Specialty Start Date End Date Elia Pimentel MD [address] [place] [phone] PCP - General Internal Medicine 01/11/20
--- OUTSIDE RECORDS SUMMARY | 2025-11-02 13:38 | XMS_ITS | Encounter Summary ---
Author Organization [facility] Address [address] [place] [phone] Care Team Providers Care Welt Stitch Cleaner Name Role Phone Elia Pimentel MD Primary Care Provider [phone] Encounter Details Date Type Department Care Team (Latest Contact Info) Description 03/17/2025 Lab Requisition [facility] Main Lab [address] [facility] [place] [address] Mario Bowman DDS [address] [place] [phone] Nicotine dependence, unspecified, uncomplicated Social History Tobacco [...] biopsy -SUBMUCOSAL FIBROMA 03/18/2025 9:39 AM EDT [facility] at 0939 EDT Clinical Information Incisional biopsy left retromolar mandibular ridge 40 y.o. male - smoker/now vaping Submucosal fibroma 03/18/2025 9:39 AM EDT [facility] Gross Description A. Oral Cavity, Incisional biopsy left retromolar mandibular ridge: Labeled oral mucosa . Received in formalin is a thin, 0.3 cm in greatest diameter white shave of epithelial tissue which is inked blue at the base and submitted in toto in one cassette, one piece, multiple levels. TS 03/18/2025 9:39 AM EDT [facility] Disclaimer Unless otherwise specified, all tissue is 10% NB formalin fixed and paraffin embedded. 03/18/2025 9:39 AM EDT [facility] Tissue Oral cavity structure / Unknown 03/16/2025 03/17/2025 1:41 PM EDT us Mario Bowman DDS LAB PATHOLOGY ORDERABLES Fin al Result [facility] [address] [place] [address], documented in this encounter Visit Diagnoses Diagnosis Nicotine dependence, unspecified, uncomplicated documented in this encounter Care Teams Welt Stitch Cleaner Relationship Specialty Start Date End Date Elia Pimentel MD [address] [place] [address] PCP - General Internal Medicine 01/11/20 documented as of this encounter
--- OUTSIDE RECORDS SUMMARY | 2025-11-02 13:38 | XMS_ITS | Encounter Summary ---
Author Organization [employer] Address [address] [facility] [address] [place] [address] Care Team Providers Care Lodge Officer Name Role Phone Liudmila Oliva CORADO Primary Care Provider [phone] Reason for Visit * Reason Comments Med Refill Encounter Details Date Type Department Care Team ([facility] st Contact Info) Description 01/13/2025 Refill [facility] ADULT DENTAL [address] [place], [place] [phone] Mario Bowman, SAM [address] [place] [address] Severe dental caries; Dental abscess; Non-restorable tooth [...] 11/15/2025 3:00 PM EST Office Visit [facility] ADULT DENTAL [address] [place] [address] 12/16/2025 2:30 PM EST Office Visit [facility] ADULT DENTAL [address] [place] [phone] Mario Bowman DDS [address] [place] [address] 03/14/2026 2:15 PM EDT Office Visit [facility] ADULT DENTAL [address] [place] [address] Johanne Noriega documented as of this encounter Visit Diagnoses Diagnosis Severe dental caries Dental abscess Periapical abscess without sinus Non-restorable tooth documented in this encounter Care Teams Lodge Officer Relationship Specialty Start Date End Date Oliva Nur ANP [address] [place] [id number] PCP - General Family Medicine 01/28/20 documented as of this encounter
== END 2025-11-02 13:04 | disposition home or self-care (01) ==
LOC: HO.HGS 12:36
PROVIDERS: PCP Nurse Practitioner Primary Care; Visit Provider Surgery
DX: R10.32 Left lower quadrant pain (principal); R10.9 Unspecified abdominal pain
CPT/HCPCS: 99203